=== PATIENT | female | born 2000 | race African-American/Black ===

== ENCOUNTER 2023-12-11 16:27 | Emergency (ER) | payer BC ==
[~2023-12-11] VITALS: Ht 149.9 cm; Wt 81.6 kg
[2023-12-11 16:30] VITALS: BP 117/76; PULSE 87; RESP 18; TEMP 97.2; O2SAT 97
== END 2023-12-11 16:45 | disposition left against medical advice (07) ==
LOC: MED 16:27
DX: S61.231A Puncture wound without foreign body of left index finger without damage to nail, initial encounter (principal); Z53.21 Procedure and treatment not carried out due to patient leaving prior to being seen by health care provider; W50.3XXA Accidental bite by another person, initial encounter; Y93.89 Activity, other specified; Y92.89 Other specified places as the place of occurrence of the external cause; Y99.8 Other external cause status
CPT/HCPCS: 99281